=== PATIENT | male | born 1965 | race Caucasian/White ===

== ENCOUNTER 2020-01-08 08:23 | Emergency (ER) | payer OTHER ==
[~2020-01-08] VITALS: Ht 175.3 cm; Wt 81.6 kg
[2020-01-08 08:35] VITALS: BP 165/98
[2020-01-08] MEDS ORDERED: SODIUM CHLORIDE IRR BOTTLE IR ONE (08:42)
[2020-01-08] MEDS ORDERED: LIDOCAINE 1% VIAL ONE (08:47)
--- NOTE | 2020-01-08 08:50 | ER.PDOC ---
General Chief Complaint: Requesting Medical Care Stated Complaint: LEFT LEG INJURY Time seen by MD: 08:43 Source: patient Exam Limitations: no limitations History of Present Illness Onset: this morning (0400) Where: work Context: crush (patient pulled out a ramp and it dropped onto his left lower leg creating a laceration and pain) Severity: moderate Associated Symptoms: unable to bear weight (poorly able to bear weight) Allergies: Coded Allergies: No Known Allergies (Unverified , 01/08/20) Review of Systems Constitutional: no symptoms reported EENTM: no symptoms reported Respiratory: no symptoms reported Cardiovascular: no symptoms reported Gastrointestinal: no symptoms reported Musculoskeletal: see HPI Skin: see HPI Physical Exam General Appearance: Alert Foot: nml inspection Ankle: nml inspection Knee: nml inspection Thigh/Hip: nml inspection 1 - 2 cm curved lac Gait: limited by pain Neuro/Vasc/Tendon: sensation nml, motor nml Skin: warm/dry Head/ENT: nml inspection Neck/Back: nml inspection Abdomen: non-tender ED LACERATION WOUND REPAIR # of Wounds/Lacerations Presen: 1 Wound Location & Length (Requi: left anterior tib/fib Wound Length (cm): 35 Wound cleaned: betadine Distal NVT: neuro intact, vasc intact Anesthesia type: local Anesthesia: 1% Lidocaine Volume Anesthetic (ccs): 3 Wound's Depth, Shape: superficial, flap (reverse flap) Wound Explored: no foreign body removed Wound Repaired With: sutures Suture Size/Type: 4:0, ethilon Suture Style: interupted Number of Sutures: 4 Sterile Dressing Applied?: Yes Results/Orders Results/Orders Orders - KATARZYNA ARORA DO Sodium Chloride Irrig Solution (Sodium C (01/08/20 08:42) Xr Tib/Fib Lt (01/08/20 08:47) Tetanus-Diphtheria Toxoids/Pf (Tenivac S (01/08/20 09:00) Lidocaine Hcl (Lidocaine 1% Vial) (01/08/20 08:47) Vital Signs Date Time Temp Pulse Resp B/P (MAP) Pulse Ox O2 Delivery O2 Flow Rate FiO2 01/08/20 08:35 98.5 80 18 165/98 (120) 97 Room Air 01/08/20 08:35 98.5 80 18 97 01/08/20 08:35 98.5 80 18 EKG/XRAY/CT/US XRAY: leg (no fx seen) Departure Time of Disposition: 10:04 Disposition: 01 HOME, SELF-CARE Impression: Primary Impression: Contusion of left leg Additional Impression: Laceration of left leg Condition: Improved Patient Instructions: Sutured Wound Care Referrals: PCP,UNKNOWN (PCP) PRIMARY CARE PROVIDER Additional Instructions: Sutures out 14 days. Off work 3 days. Apply triple antibiotic to wound daily. Take antibiotics as directed. Return to nearest ER for any signs of infection or other concerns. Duration or Time Spent with Pa: 30 min Problem Qualifiers Primary Impression: Contusion of left leg Encounter type: initial encounter Qualified Codes: S80.12XA - Contusion of left lower leg, initial encounter Additional Impression: Laceration of left leg Encounter type: initial encounter Qualified Codes: S81.812A - Laceration without foreign body, left lower leg, initial encounter KATARZYNA ARORA DO Jan 08, 2020 08:50
[2020-01-08] MEDS ORDERED: TENIVAC SYRINGE IM ONE (09:00)
[2020-01-08 09:30] VITALS: BP 127/79
--- NOTE | 2020-01-08 09:31 | DIREP ---
PROCEDURE:XRAY TIB & FIB 2 VW-LT COMPARISON:None. INDICATIONS:injury FINDINGS: BONES:Normal. JOINTS:Normal. SOFT TISSUES:Normal. OTHER:No additional findings. CONCLUSION:Normal examination. Dictated by: Allan Kim M.D. on 01/08/2020 at 09:28 AM
--- NOTE | 2020-01-08 09:50 | NUR ---
WOUND DR. ARORA AT BEDSIDE FOR LACERATION REPAIR.
[2020-01-08] MEDS ORDERED: TRIPLE ANTIBIOTIC OINTMENT TP STA (10:03)
[2020-01-08] MEDS ORDERED: ADACEL VIAL IM ONE (10:09)
--- NOTE | 2020-01-08 10:15 | NUR ---
WOUND WOUND CARE DONE PER VERBAL ORDERS FROM DR. ARORA. APPLIED TRIPLE ABX OINTMENT AND COVERED WITH TELFA AND GAUZE AND WRAPPED WITH KERLEX AND SECURED WITH TAPE.
--- NOTE | 2020-01-08 10:22 | NUR ---
IMMUNIZATION PATIENT GIVEN DTaP INJECTION IN RT DELTOID IM PER ORDER FROM DR. ARORA. LOT# [id number] EXPIRATION 01/21/22 VIS INFORMATION GIVEN.
[2020-01-08 10:30] VITALS: BP 167/82
== END 2020-01-08 10:37 | disposition home or self-care (01) ==
LOC: ER 08:23
DX: S81.812A Laceration without foreign body, left lower leg, initial encounter (principal); W20.8XXA Other cause of strike by thrown, projected or falling object, initial encounter; Y93.89 Activity, other specified; Y92.89 Other specified places as the place of occurrence of the external cause; Y99.8 Other external cause status
CPT/HCPCS: 12002; 73590; 90471; 90715; 99283; A4217; J2001